=== PATIENT | male | born 1985 | race Caucasian/White ===

== ENCOUNTER 2017-12-19 15:55 | Observation (INO) ==
[2017-12-19 16:27] LABS: Basophils % 0.3 %; Eosinophils # 0.2 K/mcL (0.0-0.6); Eosinophils % 2.3 %; Hematocrit 48.9 % (37.5-50.1); Hemoglobin 16.7 g/dL (12.9-16.9); Immature Granulocytes % 0.7 % (0-4); Lymphocytes % 26.2 %; Mean Corpuscular HGB Conc 34.2 g/dL (31.6-35.5); Mean Corpuscular Volume 96.6 fL (83.0-100.0); Mean Platelet Volume 8.4 fL (9.4-12.4); Monocytes # 0.5 K/mcL (0.0-1.3); Monocytes % 7.2 %; Neutrophils # 4.7 K/mcL (1.6-8.9); Platelet Count 164 K/mcL (140-400); Red Blood Count 5.06 M/mcL (4.19-5.50); Red Cell Distribution Width 12.2 % (11.5-14.5); Segmented Neutrophils % 63.3 %
[2017-12-19 16:41] LABS: BUN/Creatinine Ratio 16 (6-26); Blood Urea Nitrogen 16 mg/dL (6-20); Calcium 9.6 mg/dL (8.6-10.3); Carbon Dioxide 22 mEq/L (23-29); Chloride 107 mEq/L (98-107); Glucose 121 mg/dL (70-105); Osmolality,Calculated 286 (280-300); Sodium 137 mEq/L (136-145); eGFR For African Americans > 60 (> 60); eGFR For Non-African Americans > 60 (> 60)
--- NOTE | 2017-12-19 19:33 | Emergency Department Note ---
Disposition Clinical Impression: Chest pain, History of hypertension, Smoker, Hematemesis, Abnormal EKG, Obesity , Hyperglycemia Disposition: Admitted As Inpatient Referrals: Agustina Lara DO [Primary Care Provider] - Forms: ED Satisfaction Letter General Adult HPI - General Chief complaint: ED Chest Pain Stated complaint: CP Source: patient Limitations: no limitations - History of Present Illness HPI Narrative: 32-year-old male reports emergency department complaining of chest pain which is been present and intermittent for about a week. He stated earlier in last week he developed chest pain which was dull and consistent in the left side of his chest. It did not radiate to his arms or jaw. Nothing seems to exacerbate the pain or make it better. The patient reports that on Saturday evening he threw up after eating food and threw up a small amount of blood. He went to see his primary care physician who thought perhaps he had an ulcer and placed him on an antiulcer medication. The patient has had no recurrences of vomiting bloody material and no recurrent vomiting. There is been no black or bloody material in the stool. The patient denies abdominal pain. He is currently not anticoagulated. He went to his primary care physician regarding the vomiting, he states an EKG was done and no acute findings were appreciated. The patient also describes having some other outpatient testing and he was not notified as to the results. The patient was at work today and became concerned regarding sharp intermittent left-sided chest pain not associated with movement breathing or activity particularly. He describes doing a lot of heavy lifting at work. Is no history of abdominal pain vomiting diarrhea or trauma. No rash on the chest no fever no upper respiratory symptoms. There is no history of leg swelling or pain. No previous history of CAD DVT PE or cancer. No primary lung disease/asthma COPD. The patient has no personal history of aortic aneurysm. He states no one in his family had early coronary artery disease. The patient is a smoker and hypertensive but has no history of diabetes. He has never had to have a heart catheterization or cardiac stents. The patient denies any other complaints or concerns. No history of acute anxiety or syncope. Patient does not usually develop exertional chest pain. Pain Scale: 1 - Related Data Home Medications Medication Instructions Recorded Confirmed Lisinopril [Zestril] 20 mg PO BID 12/19/17 12/19/17 Omeprazole [PriLOSEC] 20 mg PO DAILY 12/19/17 12/19/17 Allergies Allergy/AdvReac Type Severity Reaction Status Date / Time Amoxicillin Allergy Rash Verified 09/20/15 16:38 All systems ED: reviewed and negative except as stated. Past Medical History - Past Medical History Medical history: Reports: hypertension Surgical history: Reports: no surgical history Psychiatric history: Reports: no psych history - Social History Smoking Status: Current every day smoker Smokeless Tobacco Status: No Alcohol use: Reports: none Drug use: Reports: none Physical Exam - General Limitations: no limitations General appearance: alert, in no apparent distress - Head Head exam: atraumatic, normocephalic, normal inspection - Eye Eye exam: Present: normal appearance, PERRL, EOMI - ENT ENT exam: normal exam, normal oropharynx, mucous membranes moist - Neck Neck exam: Present: normal inspection, full ROM, trachea midline - Chest Chest inspection: Present: normal inspection, symmetric chest wall rise. Absent : tenderness - Respiratory Respiratory exam: Present: normal lung sounds bilaterally. Absent: respiratory distress, wheezes, accessory muscle use, prolonged expiratory phase - Cardiovascular Cardiovascular exam: Present: regular rate, normal rhythm, normal heart sounds - Abdominal Exam Abdominal exam: Present: soft, Non-Tender, normal bowel sounds. Absent: tenderness, distention, guarding, rebound, rigidity - Extremities Exam Extremities exam: Present: normal inspection, full ROM, normal capillary refill. Absent: tenderness, pedal edema, joint swelling, calf tenderness - Expanded Lower Extremity Exam Neurovascular/Tendon exam: Present: normal capillary refill. Absent: pulse deficit, motor deficit, sensory deficit, tendon deficit, extremity cold to touch , pallor - Back Exam Back exam: Present: full ROM. Absent: tenderness, CVA tenderness (R), CVA tenderness (L), vertebral tenderness - Neurological Exam Neurological exam: Present: alert, oriented X3, CN II-XII intact. Absent: motor sensory deficit - Psychiatric Psychiatric exam: Present: normal affect, normal mood - Skin Skin exam: Present: warm, dry, intact, normal color Course Vital Signs Temperature 98.1 F 12/19/17 15:56 Pulse Rate 106 12/19/17 15:56 Respiratory Rate 18 12/19/17 15:56 Blood Pressure 170/94 12/19/17 15:56 O2 Sat by Pulse Oximetry 95 12/19/17 15:56 Temperature 98.1 F 12/19/17 15:56 Pulse Rate 80 12/19/17 22:04 Respiratory Rate 18 12/19/17 15:56 Blood Pressure 155/116 12/19/17 22:04 O2 Sat by Pulse Oximetry 98 12/19/17 22:04 Oxygen Delivery Oxygen Delivery Room Air Medical Decision Making - MDM Narrative Medical decision making narrative: The patient appears to be stable, his EKG is abnormal however some Q waves are noted as well as what appears to be potential LVH. A slight intraventricular conduction delay is also noted with what appears to be a slight ST depression in lead 2. The patient's cardiac enzymes and laboratory studies are negative. Chest x-ray negative. The patient has not had recurrent bloody emesis. He has had no blackened stool and his hemoglobin is stable. On my calculation, the patient's heart score is a 4. Based on the patient's chest pain, abnormal EKG, history of hypertension, nicotine dependence, and elevated heart score, I thought it would be appropriate to admit the patient to hospital. The patient is never had a stress test or cardiac catheterization. I reviewed the case with the patient and his father and they are agreeable. I discussed the case with the hospitalist on-call who has accepted the patient to their care. The patient requested his usual dose of lisinopril 20 mg which was ordered. A dose of Pepcid was also ordered. Aspirin was ordered as well. - Lab Data Lab results reviewed: Yes I reviewed the patient's lab results. Result diagrams: 12/19/17 16:02 12/19/17 16:02 Lab Results 12/19/17 12/19/17 12/19/17 Range/Units 16:02 16:02 16:02 WBC 7.5 (4.3-11.1) K/mcL RBC 5.06 (4.19-5.50) M/mcL Hgb 16.7 (12.9-16.9) g/dL Hct 48.9 (37.5-50.1) % MCV 96.6 (83.0-100.0) fL MCH 33.0 (28.0-33.3) pg MCHC 34.2 (31.6-35.5) g/dL RDW 12.2 (11.5-14.5) % Plt Count 164 (140-400) K/mcL MPV 8.4 L (9.4-12.4) fL Immature Gran % 0.7 (0-4) % Seg Neutrophils % 63.3 % Lymphocytes % 26.2 % Monocytes % 7.2 % Eosinophils % 2.3 % Basophils % 0.3 % Neutrophils # 4.7 (1.6-8.9) K/mcL Lymphocytes # 2.0 (0.6-4.6) K/mcL Monocytes # 0.5 (0.0-1.3) K/mcL Eosinophils # 0.2 (0.0-0.6) K/mcL Basophils # 0.0 (0.0-0.2) K/mcL Sodium 137 (136-145) mEq/L Potassium 4.0 (3.5-5.1) mEq/L Chloride 107 (98-107) mEq/L Carbon Dioxide 22 L (23-29) mEq/L BUN 16 (6-20) mg/dL Creatinine 1.01 (0.70-1.30) mg/dL Est GFR ( Amer) > 60 (> 60) Est GFR (Non-Af Amer) > 60 (> 60) BUN/Creatinine Ratio 16 (6-26) Glucose 121 H (70-105) mg/dL Calculated Osmolality 286 (280-300) Calcium 9.6 (8.6-10.3) mg/dL Total Bilirubin 0.6 (0.3-1.0) mg/dL Direct Bilirubin 0.2 (0.0-0.2) mg/dL Indirect Bilirubin 0.4 (0.0-1.2) mg/dL AST 22 (13-39) Units/L ALT 25 (7-52) Units/L Alkaline Phosphatase 74 (34-104) Units/L Troponin I < 0.03 (< 0.04) ng/mL C-Reactive Protein < 5 (Less than 10) mg/L Serum Total Protein 7.4 (6.4-8.9) g/dL Albumin 4.6 (3.5-5.7) g/dL Globulin 2.8 (2.4-3.5) g/dL Albumin/Globulin Ratio 1.6 (1.1-2.2) Lipase 22 (11-82) Units/L - Radiology Data Radiology results reviewed: Yes I reviewed the patient's radiology results.
[2017-12-19 20:13] LABS: Alanine Aminotransferase 25 Units/L (7-52); Albumin 4.6 g/dL (3.5-5.7); Albumin/Globulin Ratio 1.6 (1.1-2.2); Alkaline Phosphatase 74 Units/L (34-104); Aspartate Amino Transferase 22 Units/L (13-39); Bilirubin,Direct 0.2 mg/dL (0.0-0.2); Bilirubin,Indirect 0.4 mg/dL (0.0-1.2); Bilirubin,Total 0.6 mg/dL (0.3-1.0); C-Reactive Protein < 5 mg/L (Less than 10); Globulin 2.8 g/dL (2.4-3.5); Lipase 22 Units/L (11-82); Total Protein 7.4 g/dL (6.4-8.9)
[2017-12-19] MEDS ORDERED: Aspirin 325 MG TABLET PO ONE (20:35)
[2017-12-19] MEDS ORDERED: Famotidine 20 MG/2 ML VIAL IVP ONE (20:40)
[2017-12-19] MEDS ORDERED: Lisinopril 20 MG TABLET PO ONE (20:41)
[2017-12-20] MEDS ORDERED: Naloxone 0.4 MG/ML INJ IVP PRN (05:00)
--- NOTE | 2017-12-20 05:04 | Internal Med History&Physical ---
Date of Encounter: 12/20/17 Time of Encounter: 05:04 Assessment and Plan (1) Chest pain Current visit: Yes Status: Acute 22/male History of hypertension. Admitted with history of shortness of breath. Had a remote history of hematemesis. Initial troponin negative. Assessment: Chest pain to rule out ACS Plan: Admit as observation. Resume home medication. Cycle troponin. Cardiology consult. All of the recommendations from cardiology regarding chest pain/blood pressure management Qualifiers: Chest pain type: unspecified Qualified Code(s): R07.9 - Chest pain, unspecified (2) History of hypertension Current visit: Yes Status: Acute Presently patient's blood pressure is very well controlled and we will continue same medication (3) Smoker Current visit: Yes Status: Acute I spent in counseling this patient more than 10 minutes but it seems to be he is not willing to quit smoking (4) Obesity Current visit: Yes Status: Acute Qualifiers: Obesity type: unspecified obesity type Obesity classification: adult class 2 (BMI 35 - 39.9) Serious obesity comorbidity presence: unspecified whether serious comorbidity present Body mass index: BMI 39.0-39.9 Qualified Code(s) : E66.9 - Obesity, unspecified; Z68.39 - Body mass index (BMI) 39.0-39.9, adult ; Z68.39 - Body mass index (BMI) 39.0-39.9, adult (5) Hyperglycemia Current visit: Yes Status: Acute . Get hemoglobin A1c. Internal Medicine - H&P: HPI Chief complaint: chest pain. Admitted From: Emergency Dept Plans for Post Hospital Care: Home History of present illness: PCP: Dr Lara Brief PMh: HTN, GERD, Ex Substance abuse, Smker. HPI: Patient is known to have a ongoing chest pain for past 1 week. Patient claims that this is a retrosternal chest pain which is occasionally most to his left precordial area. The pain is nonradiating, localized, sharp in nature worsened with activity and relieved by rest. Patient denies nausea, vomiting, abdominal pain, dizziness and diarrhea. In view of the persistent chest pain patient decided to come to this hospital for further evaluation. Workup in the emergency room: Patient was evaluated in the emergency room. Labs were drawn. Chest x-ray was negative for any acute process. CBC/CMP was not significant in terms of clinical presentation. Reason for admission: Chest pain to rule out a WI. Family history: noncontributory Past Med Surg Social Fam HX - Past Medical History Medical history: hypertension Psychiatric history: no psych history - Past Surgical History Surgical History: no surgical history - Social History Smoking Status: Current every day smoker Smokeless Tobacco Status: No Alcohol use: none Drug use: none - Family History Mother Hx Family Cardiac Disorders: Yes (HTN) Hx Family Neurologic Disorders: Yes (vertigo) Father Hx Family Genitourinary Disorders: Yes (kidney disease) Internal Medicine - H&P: Meds Lisinopril [Zestril] 20 mg PO BID 12/19/17 [History] Omeprazole [PriLOSEC] 20 mg PO DAILY 12/19/17 [History] 3 Allergy/AdvReac Type Severity Reaction Status Date / Time Amoxicillin Allergy Rash Verified 09/20/15 16:38 All Systems PM: A 10-system review of systems was performed and is negative for pertinent findings except as documented above in the HPI. - Constitutional Constitutional: no chills, no fever(s), no night sweats - EENT Eyes: no change in vision, no discharge, no pain, no photophobia Ears: no ear discharge, no ear pain, no tinnitus Nose, mouth and throat: no dysphagia, no nasal discharge, no neck pain, no sore throat - Cardiovascular Cardiovascular ROS IM: chest pain, diaphoresis, dyspnea, no lightheadedness, no palpitations, no syncope - Respiratory Respiratory: no cough, no dyspnea, no wheezing, no excessive phlegm production - Gastrointestinal Gastrointestinal: no abdominal pain, no diarrhea, no hematemesis, no hematochezia, no melena, no nausea, no vomiting - Musculoskeletal Musculoskeletal ROS IM: no numbness, no tingling - Integumentary Integumentary IM: no rash, no unusual bruising - Neurological Neurological ROS: no confusion, no convulsions, no focal weakness, no numbness, no tingling, no tremor(s) - Hematologic/Lymphatic Hematologic/Lymphatic: no easy bruising - Constitutional Vitals: Temp Pulse Resp BP Pulse Ox 97.8 F 76 17 134/94 97 12/20/17 03:30 12/20/17 03:30 12/20/17 03:30 12/20/17 03:30 12/20/17 03:30 General appearance: Present: A&O X 3, morbidly obese, pleasant, no acute distress - Head Head exam: Present: atraumatic, normocephalic - Eye Eye exam: Present: PERRL, conjuntiva pink, sclera anicteric Pupils: Present: PERRL - Neck Neck exam general surgery: Present: supple, trachea midline. Absent: lymphadenopathy - Respiratory Respiratory exam: Present: CTAB. Absent: accessory muscle use, rales, rhonchi, wheezes - Cardiovascular Cardiovascular exam: Present: RRR, +S1, +S2. Absent: diastolic murmur, gallop, rubs, systolic murmur - GI/Abdominal GI/Abdominal exam: Present: normal bowel sounds, soft, no peritoneal signs. Absent: distended, tenderness - Extremities Exam Extremities exam: Present: warm, radial pulses palpable and symmetrical. Absent : calf tenderness, cyanotic, pedal edema - Neurological Exam Neurological exam: Present: CN II-XII intact, oriented X3, no focal deficits. Absent: pronater drift, facial droop, speech deficit - Skin Skin exam: Present: dry, intact Internal Med - H&P Results - Labs CBC & Chem 7: 12/19/17 16:02 12/19/17 16:02
[2017-12-20 06:20] LABS: Basophils % 0.3 %; Eosinophils # 0.2 K/mcL (0.0-0.6); Eosinophils % 2.8 %; Hematocrit 45.3 % (37.5-50.1); Hemoglobin 15.3 g/dL (12.9-16.9); Immature Granulocytes % 0.5 % (0-4); Lymphocytes # 1.6 K/mcL (0.6-4.6); Lymphocytes % 24.9 %; Mean Corpuscular HGB Conc 33.8 g/dL (31.6-35.5); Mean Corpuscular Hemoglobin 32.8 pg (28.0-33.3); Mean Platelet Volume 8.8 fL (9.4-12.4); Monocytes # 0.6 K/mcL (0.0-1.3); Monocytes % 8.6 %; Platelet Count 143 K/mcL (140-400); Red Blood Count 4.67 M/mcL (4.19-5.50); Red Cell Distribution Width 12.4 % (11.5-14.5); Segmented Neutrophils % 62.9 %
[2017-12-20 06:28] LABS: INR 1.1; Prothrombin Time 11.3 Seconds (9.4-12.1)
[2017-12-20 06:31] LABS: Activated Partial Thrombo Time 30.3 Seconds (26.0-36.0)
[2017-12-20 06:41] LABS: Alanine Aminotransferase 22 Units/L (7-52); Albumin 4.1 g/dL (3.5-5.7); Albumin/Globulin Ratio 1.6 (1.1-2.2); Alkaline Phosphatase 62 Units/L (34-104); Aspartate Amino Transferase 18 Units/L (13-39); BUN/Creatinine Ratio 19 (6-26); Bilirubin,Total 0.7 mg/dL (0.3-1.0); Blood Urea Nitrogen 17 mg/dL (6-20); Calcium 8.9 mg/dL (8.6-10.3); Carbon Dioxide 22 mEq/L (23-29); Chloride 108 mEq/L (98-107); Chol/HDL Ratio 4.3 (0-4.9); Cholesterol 164 mg/dL (< 200); Globulin 2.6 g/dL (2.4-3.5); Glucose 104 mg/dL (70-105); HDL Cholesterol 38 mg/dL (40-59); LDL Cholesterol,Calculated 91 mg/dL (0-99); Magnesium 1.8 mg/dL (1.6-2.6); Osmolality,Calculated 284 (280-300); Phosphorous 3.1 mg/dL (2.7-4.5); Potassium 4.3 mEq/L (3.5-5.1); Sodium 136 mEq/L (136-145); Total Protein 6.7 g/dL (6.4-8.9); Triglycerides 177 mg/dL (< 150); eGFR For African Americans > 60 (> 60); eGFR For Non-African Americans > 60 (> 60)
[2017-12-20] MEDS: Aspirin Enteric Coated 81 MG Tablet PO SCH (08:57)
[2017-12-20] MEDS: Lisinopril 20 MG TABLET PO SCH ×2 (08:57→20:10)
[2017-12-20 12:08] LABS: Hemoglobin A1C 4.9 %
--- NOTE | 2017-12-20 18:23 | Internal Med Progress Note ---
Date of Encounter: 12/20/17 Time of Encounter: 16:00 - Assessment and plan (1) Chest pain Current Visit: Yes Status: Acute Assessment and plan: One-week history of chest pain. He reports it is substernal, upper left chest. He reports approximately 3 days ago it did radiate into his neck. He describes it as sharp and intermittent he denies any nausea, vomiting, diaphoresis, dizziness or shortness of breath. He has history of hypertension, obesity, smoking, hyperglycemia, increase his risk. He should and father deny any knowledge of early MIs or sudden cardiac . Chest x-ray was negative. Troponins negative. Echocardiogram LVEF of 6065%, mild concentric LV hypertrophy, mild LV DD, no significant valvular dysfunction. Patient will stay for stress test. He is aware that due to his BMI he will need a 2 day stress test. Since we do not have stress tests on Saturday, he will stay until Saturday to complete. Still reports intermittent left chest pain and rated 3/10. Continue telemetry Stress test pending Nothing by mouth after midnight Nitroglycerin as needed A1c pending Patient with mildly elevated triglycerides, we will encourage lifestyle modifications. Qualifiers: Chest pain type: unspecified Qualified Code(s): R07.9 - Chest pain, unspecified (2) History of hypertension Current Visit: Yes Status: Acute Assessment and plan: Patient has not been medicated. Blood pressure readings remain hypertensive. Continue lisinopril 20 mg twice daily. We will consider adding additional medication (3) Hyperglycemia Current Visit: Yes Status: Acute Assessment and plan: 2 hyperglycemic readings in the morning. A1c in the morning. (4) Obesity Current Visit: Yes Status: Acute Assessment and plan: Chronic. Encourage lifestyle modifications. Qualifiers: Obesity type: unspecified obesity type Obesity classification: adult class 2 (BMI 35 - 39.9) Serious obesity comorbidity presence: unspecified whether serious comorbidity present Body mass index: BMI 39.0-39.9 Qualified Code(s) : E66.9 - Obesity, unspecified; Z68.39 - Body mass index (BMI) 39.0-39.9, adult ; Z68.39 - Body mass index (BMI) 39.0-39.9, adult (5) Smoker Current Visit: Yes Status: Acute Assessment and plan: Patient reports he might be ready to quit smoking. He denies need for nicotine replacement. (6) DVT prophylaxis Current Visit: Yes Status: Acute Assessment and plan: Patient is young and ambulatory, encourage ambulation. - Subjective Interval history: Patient was seen and assessed approximately 4 PM. He is sitting up in bed, alert, oriented, answers questions appropriately. Father at bedside. She reports sharp, shooting left chest pain with radiation to his left neck 3 days ago. Onset of proximal pain 1 week. He has no other symptoms no nausea, vomiting, diarrhea, shortness of breath or diaphoresis. Patient and I discussed stress test at length. He is aware that if the stress test is ordered for the morning, he will not get the second half of his stress test until Saturday due to his BMI. He has smoking, hypertension, and obesity as risk factors, both patient and father report no early MIs or early sudden cardiac . - Constitutional Vitals: Temp Pulse Resp BP Pulse Ox 98.4 F 78 18 153/93 97 12/20/17 15:33 12/20/17 15:33 12/20/17 15:33 12/20/17 15:33 12/20/17 15:33 General appearance: Present: A&O X 3, pleasant, no acute distress, obese, answers questions appropriately - Head Head exam: Present: atraumatic, normal inspection, normocephalic - Eye Eye exam: Present: normal appearance, conjuntiva pink, sclera anicteric - Neck Neck exam general surgery: Present: supple, trachea midline. Absent: lymphadenopathy, tenderness - Respiratory Respiratory exam: Present: CTAB. Absent: accessory muscle use, chest wall tenderness, decreased breath sounds, rales, rhonchi, wheezes - Cardiovascular Cardiovascular exam: Present: RRR, +S1, +S2. Absent: diastolic murmur, gallop, rubs, systolic murmur - GI/Abdominal GI/Abdominal exam: Present: distended, normal bowel sounds, soft. Absent: hepatomegaly, tenderness - Extremities Exam Extremities exam: Present: normal inspection, warm, radial pulses palpable and symmetrical. Absent: calf tenderness, cyanotic, pedal edema, tenderness - Neurological Exam Neurological exam: Present: alert, oriented X3, no focal deficits. Absent: facial droop, speech deficit - Skin Skin exam: Present: dry, intact, normal color, warm. Absent: rash Internal Medicine: Result - Labs CBC & Chem 7: 12/20/17 05:28 12/20/17 05:28 Labs: Short CBC 12/20/17 Range/Units 05:28 WBC 6.4 (4.3-11.1) K/mcL Hgb 15.3 (12.9-16.9) g/dL Hct 45.3 (37.5-50.1) % Plt Count 143 (140-400) K/mcL Neutrophils # 4.0 (1.6-8.9) K/mcL BMP 12/20/17 05:28 Sodium 136 Potassium 4.3 Chloride 108 H Carbon Dioxide 22 L BUN 17 Creatinine 0.88 Glucose 104 Calcium 8.9 Cardiac Enzymes 12/20/17 12/20/17 12/20/17 Range/Units 05:28 12:12 17:25 Troponin I < 0.03 < 0.03 < 0.03 (< 0.04) ng/mL Liver Function 12/20/17 Range/Units 05:28 Total Bilirubin 0.7 (0.3-1.0) mg/dL AST 18 (13-39) Units/L ALT 22 (7-52) Units/L Alkaline Phosphatase 62 (34-104) Units/L Albumin 4.1 (3.5-5.7) g/dL - ABG Interpretation ABG results: PT/INR, D-dimer PT 11.3 Seconds (9.4-12.1) 12/20/17 05:28 - Impressions Impressions Echocardiogram 12/20/17 05:02 Impressions: LVEF 60-65%. Normal LV chamber size and function. Mild concentric left ventricular hypertrophy. Mild left ventricular diastolic dysfunction. Right ventricular size was not well visualized. Function appears normal. Unable to estimate RVSP due to lack of TR jet. No significant valvular dysfunction. Left Ventricular Wall Motion: Rest Echo Findings All wall segments showed normal motion. Findings: Study Quality * Technically sub-optimal due to body habitus. ECG Findings * Normal sinus rhythm. Left Ventricle * LVEF 60-65%. * Normal LV chamber size and function. * Mild concentric left ventricular hypertrophy. * Mild left ventricular diastolic dysfunction. Right Ventricle * Right ventricular size was not well visualized. Function appears normal. Left Atrium * Mild to moderately dilated left atrium. Right Atrium * Mild to moderately dilated right atrium. Interatrial Septum * Interatrial septum not well evaluated. Aortic Valve * Aortic valve not well visualized. * No aortic regurgitation. * No aortic stenosis. Mitral Valve * Normal mitral valve structure and function. * No mitral regurgitation. * No mitral stenosis. Tricuspid Valve * Normal tricuspid valve structure and function. * No tricuspid regurgitation. * Unable to estimate RVSP due to lack of TR jet. Pulmonic Valve * Pulmonic valve not well visualized. Aorta * Normally sized aortic root. Pericardium * The pericardium appears normal. IVC * Normal IVC dimensions and inspiratory collapse. Pulmonary Artery * Pulmonary artery not well visualized. Consult Discharge Plan - Plan Referrals: Agustina Lara DO [Primary Care Provider] -
[2017-12-20] MEDS: Nicotine 14 MG PATCH.TD24 TD SCH (20:10)
--- NOTE | 2017-12-20 20:19 | Electrocardiograph Report ---
[place] [id number] Test Date: 2017-12-19 Pat Name: Everardo Sanderson Department: 104 Room: 3B39 Gender: M Welding Machine Operator/Tender: : 1985 Requested By: Jose Bhatti Order Number: [id number] Reading MD: Adin Kent DO Measurements Intervals [place] Rate: 104 P: 72 IN: 179 QRS: 60 QRSD: 103 T: 38 QT: 312 QTc: 373 Interpretive Statements SINUS TACHYCARDIA Electronically Signed On 12-20-2017 20:17:57 EST by Adin Kent DO
[2017-12-21 05:06] LABS: Basophils % 0.3 %; Eosinophils # 0.2 K/mcL (0.0-0.6); Eosinophils % 2.6 %; Hematocrit 46.3 % (37.5-50.1); Hemoglobin 15.7 g/dL (12.9-16.9); Immature Granulocytes % 0.6 % (0-4); Lymphocytes # 1.4 K/mcL (0.6-4.6); Lymphocytes % 21.9 %; Mean Corpuscular HGB Conc 33.9 g/dL (31.6-35.5); Mean Corpuscular Hemoglobin 32.8 pg (28.0-33.3); Mean Corpuscular Volume 96.7 fL (83.0-100.0); Mean Platelet Volume 8.8 fL (9.4-12.4); Monocytes # 0.6 K/mcL (0.0-1.3); Monocytes % 8.6 %; Neutrophils # 4.3 K/mcL (1.6-8.9); Platelet Count 136 K/mcL (140-400); Red Blood Count 4.79 M/mcL (4.19-5.50); Red Cell Distribution Width 12.3 % (11.5-14.5)
[2017-12-21 05:25] LABS: BUN/Creatinine Ratio 20 (6-26); Blood Urea Nitrogen 17 mg/dL (6-20); Calcium 8.6 mg/dL (8.6-10.3); Carbon Dioxide 23 mEq/L (23-29); Chloride 109 mEq/L (98-107); Glucose 102 mg/dL (70-105); Osmolality,Calculated 286 (280-300); Potassium 4.1 mEq/L (3.5-5.1); Sodium 137 mEq/L (136-145); eGFR For African Americans > 60 (> 60); eGFR For Non-African Americans > 60 (> 60)
[2017-12-21] MEDS ORDERED: Regadenoson 0.4 MG/5 ML SYRINGE IVP ONE (06:30)
[2017-12-21] MEDS: Nicotine 14 MG PATCH.TD24 TD SCH (13:36)
[2017-12-21] MEDS: Aspirin Enteric Coated 81 MG Tablet PO SCH (13:36)
[2017-12-21] MEDS: Lisinopril 20 MG TABLET PO SCH ×2 (13:36→19:54)
--- NOTE | 2017-12-21 17:46 | Internal Med Progress Note ---
Date of Encounter: 12/21/17 Time of Encounter: 10:30 - Assessment and plan (1) Chest pain Current Visit: Yes Status: Acute Assessment and plan: Still reports intermittent left chest pain and rated 3/10. Denies shortness of breath, cough, fever or chills. Continue aspirin, nitroglycerin. A1c is 4.9 Continue telemetry Stress test pending Nothing by mouth after midnight Nitroglycerin as needed Patient with mildly elevated triglycerides, we will encourage lifestyle modifications. Qualifiers: Chest pain type: unspecified Qualified Code(s): R07.9 - Chest pain, unspecified (2) History of hypertension Current Visit: Yes Status: Acute Assessment and plan: Patient has not been medicated. Blood pressure readings remain hypertensive. Continue lisinopril 20 mg twice daily. Will add hydrochlorothiazide 12.5 mg by mouth daily. (3) Obesity Current Visit: Yes Status: Acute Assessment and plan: Chronic. Encourage lifestyle modifications. Qualifiers: Obesity type: unspecified obesity type Obesity classification: adult class 2 (BMI 35 - 39.9) Serious obesity comorbidity presence: unspecified whether serious comorbidity present Body mass index: BMI 39.0-39.9 Qualified Code(s) : E66.9 - Obesity, unspecified; Z68.39 - Body mass index (BMI) 39.0-39.9, adult ; Z68.39 - Body mass index (BMI) 39.0-39.9, adult (4) Smoker Current Visit: Yes Status: Acute Assessment and plan: Patient reports he might be ready to quit smoking. He denies need for nicotine replacement again today. (5) DVT prophylaxis Current Visit: Yes Status: Acute Assessment and plan: Patient is young and ambulatory, encourage ambulation. - Time Spent With Patient less than 15 minutes - Subjective Interval history: Patient was seen and assessed approximately 1030 a.m. He is sitting up in bed, alert, oriented, answers questions appropriately. Patient reports he is still having intermittent left chest pain without radiation. He denies any nausea, vomiting, diarrhea. Of the time of exam, patient was unable to have any nitroglycerin or by mouth medications due to pending stress test. Patient denies chest pain, nausea, vomiting, diaphoresis. He denies any diarrhea abdominal pain, cramping. He denies dizziness, headaches or blurred vision, no neck pain. Denies recent cough, fever, chills. The pain is not reproducible with palpation. Patient is aware that he will be here for 2 more days to finish a stress test. - Constitutional Vitals: Temp Pulse Resp BP Pulse Ox 98.3 F 93 16 148/97 94 12/21/17 15:49 12/21/17 15:49 12/21/17 15:49 12/21/17 15:49 12/21/17 15:49 General appearance: Present: cooperative, A&O X 3, pleasant, no acute distress, obese, answers questions appropriately - Head Head exam: Present: atraumatic, normal inspection, normocephalic - Eye Eye exam: Present: normal appearance, conjuntiva pink, sclera anicteric - Neck Neck exam general surgery: Present: supple, trachea midline. Absent: lymphadenopathy, tenderness - Respiratory Respiratory exam: Present: CTAB. Absent: accessory muscle use, rales, respiratory distress, rhonchi, wheezes - Cardiovascular Cardiovascular exam: Present: RRR, +S1, +S2. Absent: diastolic murmur, gallop, rubs, systolic murmur - GI/Abdominal GI/Abdominal exam: Present: normal bowel sounds, soft, no peritoneal signs. Absent: distended, hepatomegaly, tenderness - Extremities Exam Extremities exam: Present: normal capillary refill, normal inspection, warm, radial pulses palpable and symmetrical. Absent: calf tenderness, cyanotic, pedal edema, tenderness - Neurological Exam Neurological exam: Present: alert, oriented X3, no focal deficits. Absent: facial droop, speech deficit - Skin Skin exam: Present: dry, intact, normal color, warm. Absent: rash Internal Medicine: Result - Labs CBC & Chem 7: 12/21/17 04:03 12/21/17 04:03 Labs: Short CBC 12/21/17 Range/Units 04:03 WBC 6.5 (4.3-11.1) K/mcL Hgb 15.7 (12.9-16.9) g/dL Hct 46.3 (37.5-50.1) % Plt Count 136 L (140-400) K/mcL Neutrophils # 4.3 (1.6-8.9) K/mcL BMP 12/21/17 04:03 Sodium 137 Potassium 4.1 Chloride 109 H Carbon Dioxide 23 BUN 17 Creatinine 0.83 Glucose 102 Calcium 8.6 Cardiac Enzymes 12/20/17 Range/Units 17:25 Troponin I < 0.03 (< 0.04) ng/mL - ABG Interpretation ABG results: PT/INR, D-dimer PT 11.3 Seconds (9.4-12.1) 12/20/17 05:28 Consult Discharge Plan - Plan Referrals: Agustina Lara DO [Primary Care Provider] -
[2017-12-21] MEDS ORDERED: Nitroglycerin 0.4 MG TAB.SUBL SL PRN (17:48)
[2017-12-22] MEDS: Lisinopril 20 MG TABLET PO SCH ×2 (08:13→19:33)
[2017-12-22] MEDS: Nicotine 14 MG PATCH.TD24 TD SCH (08:13)
[2017-12-22] MEDS: Aspirin Enteric Coated 81 MG Tablet PO SCH (08:13)
--- NOTE | 2017-12-22 14:02 | Internal Med Progress Note ---
Date of Encounter: 12/22/17 Time of Encounter: 10:50 - Assessment and plan (1) Chest pain Current Visit: Yes Status: Acute Assessment and plan: Still reports intermittent left chest pain and rated. Denies shortness of breath, cough, fever or chills. ASA, NTG ordered, pt will not take due to headache. A1c is 4.9 Continue telemetry Stress test pending Nothing by mouth after midnight Nitroglycerin as needed Patient with mildly elevated triglycerides, we will encourage lifestyle modifications. Qualifiers: Chest pain type: unspecified Qualified Code(s): R07.9 - Chest pain, unspecified (2) History of hypertension Current Visit: Yes Status: Acute Assessment and plan: Patient has not been medicated. Blood pressure readings seem slightly better after addition of HCTZ 12.5mg po daily Continue lisinopril 20 mg twice daily and HCTZ. (3) Obesity Current Visit: Yes Status: Acute Assessment and plan: Chronic. Encourage lifestyle modifications., including diet and exercise. Qualifiers: Obesity type: unspecified obesity type Obesity classification: adult class 2 (BMI 35 - 39.9) Serious obesity comorbidity presence: unspecified whether serious comorbidity present Body mass index: BMI 39.0-39.9 Qualified Code(s) : E66.9 - Obesity, unspecified; Z68.39 - Body mass index (BMI) 39.0-39.9, adult ; Z68.39 - Body mass index (BMI) 39.0-39.9, adult (4) Smoker Current Visit: Yes Status: Acute Assessment and plan: Patient reports he might be ready to quit smoking. He denies need for nicotine replacement again today. (5) DVT prophylaxis Current Visit: Yes Status: Acute Assessment and plan: Patient is young and ambulatory, encourage ambulation. - Time Spent With Patient less than 15 minutes - Subjective Interval history: Patient was seen and assessed approximately 1050 a.m. He is sitting up in bed, alert, oriented, answers questions appropriately. Patient reports he is still having intermittent left chest pain without radiation. STates that he does not want to take ntg due to headache. He denies any nausea, vomiting, diarrhea. Patient denies nausea, vomiting, diaphoresis. He denies any diarrhea abdominal pain, cramping. He denies dizziness, headaches or blurred vision, no neck pain. Denies recent cough, fever, chills. The pain is not reproducible with palpation. Stress test tomorrow. - Constitutional Vitals: Temp Pulse Resp BP Pulse Ox 97.9 F 85 18 147/83 98 12/22/17 11:51 12/22/17 11:51 12/22/17 11:51 12/22/17 11:51 12/22/17 11:51 General appearance: Present: cooperative, A&O X 3, pleasant, no acute distress, obese, answers questions appropriately - Head Head exam: Present: atraumatic, normal inspection, normocephalic - Eye Eye exam: Present: normal appearance, conjuntiva pink, sclera anicteric - Neck Neck exam general surgery: Present: normal inspection, supple, trachea midline. Absent: lymphadenopathy, tenderness - Respiratory Respiratory exam: Present: CTAB. Absent: accessory muscle use, rales, rhonchi, wheezes - Cardiovascular Cardiovascular exam: Present: RRR, +S1, +S2. Absent: diastolic murmur, gallop, rubs, systolic murmur - GI/Abdominal GI/Abdominal exam: Present: normal bowel sounds, soft. Absent: distended, hepatomegaly, tenderness - Extremities Exam Extremities exam: Present: normal capillary refill, normal inspection, warm, radial pulses palpable and symmetrical. Absent: calf tenderness, cyanotic, pedal edema, tenderness - Neurological Exam Neurological exam: Present: alert, oriented X3, no focal deficits. Absent: facial droop, speech deficit - Skin Skin exam: Present: dry, intact, normal color, warm. Absent: rash Internal Medicine: Result - Labs CBC & Chem 7: 12/21/17 04:03 12/21/17 04:03 - ABG Interpretation ABG results: PT/INR, D-dimer PT 11.3 Seconds (9.4-12.1) 12/20/17 05:28 Consult Discharge Plan - Plan Referrals: Agustina Lara DO [Primary Care Provider] -
[2017-12-23] MEDS: Lisinopril 20 MG TABLET PO SCH ×2 (07:45→21:17)
[2017-12-23] MEDS: Aspirin Enteric Coated 81 MG Tablet PO SCH (09:26)
[2017-12-23] MEDS: Nicotine 14 MG PATCH.TD24 TD SCH (09:26)
[2017-12-23 10:25] LABS: Hemoglobin A1C 4.8 %
--- NOTE | 2017-12-23 11:47 | Discharge Summary ---
Orders not resulted at time of discharge: Pending orders 12/20/17 19:25 NM niikta perf SPECT multi [NM] Routine Date of Encounter: 12/23/17 Time of Encounter: 12:50 - Discharge Diagnosis (1) Chest pain Priority: Primary Status: Acute Comments: Patient has reported mild, intermittent left chest pain without radiation. He denies any shortness of breath, cough, fever, chills. The pain is not reproducible. Patient has had aspirin and nitroglycerin ordered and will not take the nitroglycerin due to headache. His A1c is 4.9 and well-controlled, triglycerides are mildly elevated, we discussed lifestyle modifications, we will most likely place him on fish oil supplement and recommended labs in 6 months at his primary care provider. EKG was normal sinus rhythm without ST elevation or changes, troponins were negative 3. Echocardiogram shows preserved EF with normal LV size and function, mild concentric LV hypertrophy, mild LV diastolic dysfunction and no significant valvular dysfunction. Stress test shows gaited EF of 65% of small size, mild intensity, reversible basal to mid inferolateral defect, suggestive of ischemia. Cardiology was consulted, patient was made aware of results and basic options discussed. 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 Will add hydrochlorothiazide to daily regimen. Continue telemetry Cardiology consult and close follow-up after discharge Qualifiers: Chest pain type: unspecified Qualified Code(s): R07.9 - Chest pain, unspecified (2) History of hypertension Priority: Secondary Status: Chronic Comments: Patient takes lisinopril 20 mg twice daily, I will add hydrochlorothiazide 12.5 mg daily to regimen for continued hypertension, perhaps if successful can make combination drug. Patient needs close monitoring of blood pressure after discharge. (3) Obesity Priority: Secondary Status: Chronic Comments: Encourage lifestyle modifications including diet and exercise modifications. Qualifiers: Obesity type: unspecified obesity type Obesity classification: adult class 2 (BMI 35 - 39.9) Serious obesity comorbidity presence: unspecified whether serious comorbidity present Body mass index: BMI 39.0-39.9 Qualified Code(s) : E66.9 - Obesity, unspecified; Z68.39 - Body mass index (BMI) 39.0-39.9, adult ; Z68.39 - Body mass index (BMI) 39.0-39.9, adult (4) Smoker Priority: Secondary Status: Chronic Comments: Patient I have discussed multiple times smoking cessation. He states he is doing well here. I will still give him a prescription for NicoDerm patches at discharge. (5) DVT prophylaxis Priority: Secondary Status: Acute Comments: Patient has been ambulatory. Hospital course: Mr. Sanderson is a 32 year old male with past medical history of hypertension who presented to the emergency department with left chest pain with some radiation to left neck and shoulder. Patient was agreeable to spending the weekend here seeking had a 2 day stress test on Saturday and Saturday. He had intermittent chest pain throughout his visit, declined nitroglycerin due to headache. Patient was started on aspirin 81 mg daily as well as Lipitor 20 mg daily at bedtime due to new diagnosis of hypertriglyceridemia. EKG showed preserved ejection fraction with mild LVDD and no significant valvular dysfunction. Stress test indicated EF of 65% with a small size, mild intensity, reversible basal to mid inferolateral defect suggestive of ischemia. Cardiology was consulted and will see patient. Patient had negative troponins and EKG was normal sinus rhythm without ST changes. Patient has a history of smoking and hypertension. His blood pressures been borderline throughout his visit. He takes Lipitor 20 mg twice daily, have added hydrochlorothiazide 12.5 mg daily, can increase to 25 mg daily if necessary. Discharge summary was started due to positive stress test results. Patient has not yet been seen by cardiology at this time. - Time Spent with Patient Total time spent providing and/or coordinating discharge services: - Discharge Medications Prescriptions: hydroCHLOROthiazide [Hydrochlorothiazide] 12.5 mg PO DAILY #30 tablet Nicotine Patch [Nicoderm] 14 mg TD DAILY #28 patch.td24 [place]-3/Dha/Epa/Fish Oil [Fish Oil [place]-3 EC 1,200 mg] 1 each PO DAILY #30 capsule.dr Ham Medications: Lisinopril [Zestril] 20 mg PO BID 12/19/17 [History] Omeprazole [PriLOSEC] 20 mg PO DAILY 12/19/17 [History] Nicotine Patch [Nicoderm] 14 mg TD DAILY #28 patch.td24 12/23/17 [Rx] [place]-3/Dha/Epa/Fish Oil [Fish Oil [place]-3 EC 1,200 mg] 1 each PO DAILY #30 capsule. 12/23/17 [Rx] hydroCHLOROthiazide [Hydrochlorothiazide] 12.5 mg PO DAILY #30 tablet 12/23/17 [ Rx] Allergies/Adverse Reactions: 3 Allergy/AdvReac Type Severity Reaction Status Date / Time Amoxicillin Allergy Rash Verified 09/20/15 16:38 Date of admission: 12/19/17 22:37 Primary care physician: Agustina Lara DO Discharging clinician: Sharita Hoyt Anticipated date of discharge: 12/23/17 - Constitutional Vitals: Temp Pulse Resp BP Pulse Ox 97.7 F 79 18 160/102 96 12/23/17 07:13 12/23/17 07:13 12/23/17 07:13 12/23/17 07:13 12/23/17 07:13 General appearance: Present: cooperative, A&O X 3, pleasant, no acute distress, obese, answers questions appropriately - Patient Status Disposition: Home, Self-Care Condition: Good Functional capacity at discharge: independent ambulation Overall status at discharge: patient is back to baseline - Discharge Instructions Follow Up With: Agustina Lara DO [Primary Care Provider] - Additional Instructions: These follow up with your primary care provider in the next 7-10 days for recheck. Please take your medications as directed. Please have your prescriptions filled in the next few days. Please stop smoking and weight or nicotine patches. Please increase your exercise, water, and follow a reduced calorie diet. Return to the emergency department as needed for any other problems or concerns , or if your symptoms return or worsen. - Diet and Activity Activity: increase activity as tolerated Diet: low fat, low cholesterol
[2017-12-23] MEDS: hydroCHLOROthiazide 25 MG TABLET PO SCH (12:41)
--- NOTE | 2017-12-23 17:15 | Cardiology Consult Note ---
Date of Encounter: 12/23/17 Time of Encounter: 15:30 Assessment and Plan (1) Abnormal stress test Current Visit: Yes Status: Acute Patient underwent stress testing which was an average quality study done as a 2- day due to body habitus. There is a small sized, mild intensity basal-mid inferolateral wall defect suggestive of ischemia. Patient's risk factors include hypertension and smoking. He denies premature family history of CAD. We discussed the results of the stress test and his risk factors for CAD. Given his age I suspect findings may represent a false positive test result. However, the patient has ongoing unexplained chest discomfort and risk factors for CAD and therefore we discussed consideration for proceeding with LHC. However, he also reports an episode of bloody vomitus which occurred about a week ago. He said that this was voluminous and not just blood tinged. He further reports "scope" was supposedly set up as outpatient. Presenting symptoms could be from a GI etiology. I recommend having GI evaluate the patient prior to considering proceeding with LHC. Further recommendations pending GI evaluation. Patient seems to be tolerating aspirin at this time which we will continue unless GI evaluation suggests otherwise. Discussion w patient/family: The assessment and plan as outlined above was discussed with the patient and/or family members who expressed understanding and agreement. All questions were answered. Thank you for involving us in the care of your patient. Please call with any questions. History of Present Illness Consult date: 12/23/17 Requesting physician: Sharita Hoyt Consult reason: Abnormal stress test Chief complaint: Chest pain History of present illness: Mr. Sanderson is a 32 year old male presenting with chest pain. He states pain developed approximately 2 weeks ago. Describes it as diffusely located across the chest and dull in severity and constant. Not exacerbated by exertion and not associated with food intake. He reports having bouts of sharp chest pain over the past few days which prompted his visit to the ER. Denies recent travel. Denies leg swelling. Upon presentation, troponins negative. ECG without ischemic findings. Echo with normal LVEF and RV function. Patient underwent stress testing that suggested ischemia which prompted consultation. At the bedside, the patient is resting comfortably. States he has dull chest pain rated as 1/10. This has been ongoing and constant for 2 weeks. He is hemodynamically stable. Past Med Surg Social Fam HX - Past Medical History Attestation: Yes The following information was validated with the patient. Medical history: hypertension Psychiatric history: no psych history - Past Surgical History Surgical History: no surgical history - Social History Smoking Status: Current every day smoker Smokeless Tobacco Status: No Alcohol use: none Drug use: none - Family History Mother Hx Family Cardiac Disorders: Yes (HTN) Hx Family Neurologic Disorders: Yes (vertigo) Father Hx Family Genitourinary Disorders: Yes (kidney disease) Medications and Allergies Lisinopril [Zestril] 20 mg PO BID 12/19/17 [History] Omeprazole [PriLOSEC] 20 mg PO DAILY 12/19/17 [History] Nicotine Patch [Nicoderm] 14 mg TD DAILY #28 patch.td24 12/23/17 [Rx] [place]-3/Dha/Epa/Fish Oil [Fish Oil [place]-3 EC 1,200 mg] 1 each PO DAILY #30 capsule. 12/23/17 [Rx] hydroCHLOROthiazide [Hydrochlorothiazide] 12.5 mg PO DAILY #30 tablet 12/23/17 [ Rx] 3 Allergy/AdvReac Type Severity Reaction Status Date / Time Amoxicillin Allergy Rash Verified 09/20/15 16:38 All Systems Review: The remainder of the systems were reviewed and are negative - Cardiovascular Cardiovascular: as per HPI Physical Examination Vital Signs, Last 4 Hours Temp Pulse Resp BP Pulse Ox 12/23/17 15:23 98.8 F 91 18 144/96 96 General: Conversant, No Apparent Distress HEENT: Atraumatic, Mucus Membranes Moist Neck: No JVD, Normal carotid pulses Cardiac: Reg Rate and Rhythm, Normal S1 and S2, No Murmur Lungs: Normal Breath Sounds, No Wheeze, Rales, Rhonchi Neuro: Alert and responsive, No focal deficits noted Abdomen: Soft, Non-Tender, Other (bowel sounds present) Musculoskeletal: No Chest Wall Tenderness Extremities: No Edema, Normal Pulses Results 12/21/17 04:03 12/21/17 04:03 Labs reviewed. - Imaging and Cardiology Chest Xray: report reviewed Stress Test: report reviewed Echo: report reviewed - EKG Interpretation EKG results cardiology: personally reviewed (Presenting ECG without ischemic findings) Consult Discharge Plan - Plan Additional Instructions: These follow up with your primary care provider in the next 7-10 days for recheck. Please take your medications as directed. Please have your prescriptions filled in the next few days. Please stop smoking and weight or nicotine patches. Please increase your exercise, water, and follow a reduced calorie diet. Return to the emergency department as needed for any other problems or concerns , or if your symptoms return or worsen. Referrals: Agustina Lraa DO [Primary Care Provider] - Prescriptions: hydroCHLOROthiazide [Hydrochlorothiazide] 12.5 mg PO DAILY #30 tablet Nicotine Patch [Nicoderm] 14 mg TD DAILY #28 patch.td24 [place]-3/Dha/Epa/Fish Oil [Fish Oil [place]-3 EC 1,200 mg] 1 each PO DAILY #30 capsule.
[2017-12-24] MEDS: hydroCHLOROthiazide 25 MG TABLET PO SCH (09:29)
[2017-12-24] MEDS: Lisinopril 20 MG TABLET PO SCH ×2 (09:29→21:46)
[2017-12-24] MEDS: Nicotine 14 MG PATCH.TD24 TD SCH (09:29)
--- NOTE | 2017-12-24 13:37 | Event Note ---
Date of Encounter: 12/24/17 Time of Encounter: 12:00 - Cardiology Event Note Briefly spoke with patient - continues to have dull constant chest pain without worsening. No acute overnight events. Awaiting GI evaluation and endoscopy procedure today. Further cardiac recommendations to follow procedure results.
--- NOTE | 2017-12-24 13:46 | Anesthesia Evaluation PreOp ---
Date of Encounter: 12/24/17 Time of Encounter: 13:43 - Past History Planned Operation: EGD Cardiac History: HTN, Other (abnormal stress test in setting of chest pain-- cardiology following, recommended GI evaluation prior to proceeding with [facility]) Pulmonary History: Smoker (14 years), Snore, NAHUM Dx (does not use CPAP) [employer]OCKER History: Denies Any Significant HX Other Medical History: GERD Anesthesia History: No Prior Anesthetic Complications, Past Anesthesia Alcohol Use: occasionally Drug use: none Medications and Allergies Lisinopril [Zestril] 20 mg PO BID 12/19/17 [History] Omeprazole [PriLOSEC] 20 mg PO DAILY 12/19/17 [History] Nicotine Patch [Nicoderm] 14 mg TD DAILY #28 patch.td24 12/23/17 [Rx] [place]-3/Dha/Epa/Fish Oil [Fish Oil [place]-3 EC 1,200 mg] 1 each PO DAILY #30 capsule. 12/23/17 [Rx] hydroCHLOROthiazide [Hydrochlorothiazide] 12.5 mg PO DAILY #30 tablet 12/23/17 [ Rx] 3 Allergy/AdvReac Type Severity Reaction Status Date / Time Amoxicillin Allergy Rash Verified 09/20/15 16:38 - Meds/Allergy Pre-op Review Medications Reviewed: Yes Allergies Reviewed: Yes Beta Blockers on Current Med List: No Anesthesia Results - Labs 12/21/17 04:03 12/21/17 04:03 - Imaging EKG: report reviewed (12/19/2017 SINUS TACHYCARDIA) Additional studies: 12/21/2017 Stress Impression: Average quality 2-day study. Low level exercise/ pharmacologic stress ECG is negative for ischemia at level of heart rate achieved. Chest discomfort (1/10) prior to, during, and after the study. Gated EF = 65%. Small sized, mild intensity, reversible basal to mid inferolateral defect suggestive of ischemia. Ordering physician notified via [employer]. 12/20/2017 Echo Impressions: LVEF 60-65%. Normal LV chamber size and function. Mild concentric left ventricular hypertrophy. Mild left ventricular diastolic dysfunction. Right ventricular size was not well visualized. Function appears normal. Unable to estimate RVSP due to lack of TR jet. No significant valvular dysfunction. Anesthesia Exam Vital Signs/O2 Sat, Most Current Temp Pulse Resp BP Pulse Ox 98.1 F 89 17 137/99 96 12/24/17 12:07 12/24/17 12:07 12/24/17 12:07 12/24/17 12:07 12/24/17 12:07 Height: 6'2''/1.88 m Weight: 305 lbs/138 .4 kg NPO (# of Hours): 8 Pain Scale: 0 Pain Scale Used: Numeric (1 - 10) - HEENT Pupil (Motor): EOMI Mallampati: III Teeth: Normal Oral Opening: Greater than 3 - OLIVE K[employer]OCKER LOC: Oriented OLIVE K[employer]OCKER Motor: Normal RUE, Normal LUE, Normal RLE, Normal LLE, Normal Face [employer]IVE K[employer]OCKER Sensory: Normal: RUE, LUE, RLE, LLE, Face - Cardiac Rhythm: Regular Murmur: None - Pulmonary Breath Sounds: bilateral Clear Respiratory Effort: Symmetrical Anesthesia Assess/Plan ASA Score: 3 Modified Nathalia Scale for Level of Consciousness: Cooperative, oriented, and tranquil Anesthetic Plan: MAC Monitoring Plan: Standard Monitors
[2017-12-24] MEDS: 0.9 % Sodium Chloride 500 ML IVC SCH (13:50)
[2017-12-24] MEDS ORDERED: *HR* Propofol 200 MG/20 ML VIAL IVP ONE ×2 (14:00→14:07)
[2017-12-24] MEDS ORDERED: Lidocaine -MPF 2% 2 ML VIAL ONE ×2 (14:01→14:28)
[2017-12-24] MEDS: Aspirin Enteric Coated 81 MG Tablet PO SCH (14:36)
--- NOTE | 2017-12-24 15:32 | Gastroenterology Consult Note ---
<Tommie Bullard - Last Filed: 12/24/17 15:30> Date of Encounter: 12/24/17 Time of Encounter: 12:20 - Assessment and plan (1) NSAID long-term use Status: Acute Assessment and plan: Decrease NSAID usage. Plan for EGD today. (2) Abnormal stress test Status: Acute Assessment and plan: Plan for EGD today to r/o esophagitis, gastritis, duodenitis, PUD, MW tear, or AVM prior to [facility]. - Time Spent With Patient Total time spent is greater than 50% in coordination of care (as documented) at patient's floor/unit and/or counseling patient: GI History of Present Illness - Data of Consult Patient: new to practice Consult date: 12/24/17 Requesting Physician: Raymundo Sneed MD - Consult Narrative Reason for consult: GI evaluation prior to [facility] History of present illness: Mr. Sanderson is a 32 year old male with PMHx of HTN who presented to the ED with c/o substernal chest pain x1 week which is worsened with activity and relieved by rest. Chest x-ray was negative for any acute process. Upon presentation, troponins negative. ECG without ischemic findings. Echo with normal LVEF and RV function. Patient underwent stress testing that suggested ischemia and Cardiology was consulted. He reports an episode of hematemesis about one week ago, and states a "scope" was set up as outpatient. Cardiology recommends GI evaluation prior to [facility]. Procedures: None NSAIDs: Ibuprofen Anticoagulation: None Past Med Surg Social Fam HX - Past Medical History Medical history: hypertension Psychiatric history: no psych history - Past Surgical History Surgical History: no surgical history - Social History Smoking Status: Current every day smoker Smokeless Tobacco Status: No Alcohol use: occasionally Drug use: none - Family History Mother Hx Family Cardiac Disorders: Yes (HTN) Hx Family Neurologic Disorders: Yes (vertigo) Father Hx Family Genitourinary Disorders: Yes (kidney disease) - Gastrointestinal Gastrointestinal: Present: as per HPI - Constitutional Constitutional: as per HPI - EENT Eyes: as per HPI Ears: Present: as per HPI Nose, mouth and throat: Present: as per HPI - Cardiovascular Cardiovascular ROS: Present: as per HPI - Respiratory Respiratory IM: Present: as per HPI - Genitourinary Genitourinary: Absent: change in color, Urinary frequency - Neurological ROS Neurological GI: Present: as per HPI - Hematologic/Lymphatic Hematologic/Lymphatic pediatric: Present: as per HPI - Musculoskeletal Musculoskeletal ROS GI: Present: as per HPI - Integumentary Integumentary GI: Present: as per HPI - Psychiatric ROS Psychiatric GI: Present: as per HPI - Endocrine Endocrine IM: Present: as per HPI - Constitutional Vitals: Temp Pulse Resp BP Pulse Ox 98.2 F 110 16 123/80 96 12/24/17 14:56 12/24/17 14:56 12/24/17 14:56 12/24/17 14:56 12/24/17 13:48 General appearance: Present: cooperative, A&O X 3, no acute distress, answers questions appropriately - Head Head exam: Present: atraumatic, normocephalic - Eye Eye exam: Present: normal appearance, sclera anicteric - ENT ENT exam: Present: mucous membranes dry - Neck Neck exam general surgery: Present: normal inspection, trachea midline - Respiratory Respiratory exam: Present: CTAB. Absent: rales, rhonchi - Cardiovascular Cardiovascular exam: Present: RRR, +S1, +S2 - GI/Abdominal GI/Abdominal exam: Present: soft, no peritoneal signs. Absent: distended, firm , guarding, tenderness - Rectal Rectal exam: Present: deferred - Extremities Exam Extremities exam: Present: warm - Neurological Exam Neurological exam: Present: no focal deficits - Psychiatric Psychiatric exam: Present: normal affect, normal mood - Skin Skin exam: Present: dry, intact, normal color, warm Results - Labs CBC & Chem 7: 12/21/17 04:03 12/21/17 04:03 Labs: Last Result Calcium 8.6 mg/dL (8.6-10.3) 12/21/17 04:03 Troponin I < 0.03 ng/mL (< 0.04) 12/20/17 17:25 C-Reactive Protein < 5 mg/L (Less than 10) 12/19/17 16:02 Triglycerides 177 mg/dL (< 150) H 12/20/17 05:28 Entire Visit Hgb 15.7 g/dL (12.9-16.9) 12/21/17 04:03 Hct 46.3 % (37.5-50.1) 12/21/17 04:03 PT 11.3 Seconds (9.4-12.1) 12/20/17 05:28 Total Bilirubin 0.7 mg/dL (0.3-1.0) 12/20/17 05:28 AST 18 Units/L (13-39) 12/20/17 05:28 ALT 22 Units/L (7-52) 12/20/17 05:28 Lipase 22 Units/L (11-82) 12/19/17 16:02 - ABG ABG results: PT/INR, D-dimer PT 11.3 Seconds (9.4-12.1) 12/20/17 05:28 Consult Discharge Plan - Plan Instructions: Chest Pain (DC) Additional Instructions: These follow up with your primary care provider in the next 7-10 days for recheck. Please take your medications as directed. Please have your prescriptions filled in the next few days. Please stop smoking and weight or nicotine patches. Please increase your exercise, water, and follow a reduced calorie diet. Return to the emergency department as needed for any other problems or concerns , or if your symptoms return or worsen. Referrals: Agustina Lara DO [Primary Care Provider] - Prescriptions: hydroCHLOROthiazide [Hydrochlorothiazide] 12.5 mg PO DAILY #30 tablet Nicotine Patch [Nicoderm] 14 mg TD DAILY #28 patch.td24 [place]-3/Dha/Epa/Fish Oil [Fish Oil [place]-3 EC 1,200 mg] 1 each PO DAILY #30 capsule. <Tung Luevano - Last Filed: 12/29/17 15:11> Date of Encounter: 12/24/17 - Time Spent With Patient Total time spent is greater than 50% in coordination of care (as documented) at patient's floor/unit and/or counseling patient: GI History of Present Illness - Data of Consult Requesting Physician: Raymundo Sneed MD - Consult Narrative History of present illness: Mr. Sanderson is a 32 year old male - Constitutional Vitals: Temp Pulse Resp BP Pulse Ox 98.0 F 92 16 116/81 93 12/25/17 16:30 12/25/17 17:30 12/25/17 17:30 12/25/17 17:30 12/25/17 17:30 Results - Labs CBC & Chem 7: 12/25/17 05:01 12/25/17 05:01 Labs: Last Result Calcium 9.4 mg/dL (8.6-10.3) 12/25/17 05:01 Troponin I < 0.03 ng/mL (< 0.04) 12/20/17 17:25 C-Reactive Protein < 5 mg/L (Less than 10) 12/19/17 16:02 Triglycerides 177 mg/dL (< 150) H 12/20/17 05:28 Entire Visit Hgb 16.7 g/dL (12.9-16.9) 12/25/17 05:01 Hct 49.0 % (37.5-50.1) 12/25/17 05:01 PT 11.8 Seconds (9.4-12.1) 12/25/17 05:01 Total Bilirubin 0.7 mg/dL (0.3-1.0) 12/20/17 05:28 AST 18 Units/L (13-39) 12/20/17 05:28 ALT 22 Units/L (7-52) 12/20/17 05:28 Lipase 22 Units/L (11-82) 12/19/17 16:02 - ABG ABG results: PT/INR, D-dimer PT 11.8 Seconds (9.4-12.1) 12/25/17 05:01 - Attending Attestation This is a pleasant 32-year-old white male who comes in now because of substernal chest pain and an episode of hematemesis about a week ago this is a difficult one to evaluate because it is a week ago and if it is a moderate Carmen-De Guzman tear would probably be be completely healed at this time unless cardiology is planning a left heart catheterization so in order so we have to exclude any possible contraindication to anticoagulation and so we will plan to repeat upper endoscopy today the patient understands that he might not find anything since it has been a week ago thank you very much this consultation we will make further recommendations after endoscopy today I have personally performed a face to face evaluation on this patient. I have reviewed and agree with the care plan. History and Exam by me shows:
--- NOTE | 2017-12-24 16:49 | Internal Med Progress Note ---
Date of Encounter: 12/24/17 Time of Encounter: 16:47 - Assessment and plan (1) Chest pain Current Visit: Yes Status: Acute Assessment and plan: with intermittent left chest pain and rated. Stress test showed small size, mild intensity re defect suggestive of ischemia. Evaluated by cardiology he was concern for possible GI etiology requested GI evaluation. Underwent EGD on 12/24/17 that showed esophagitis and gastritis (plan as noted below). Cardiology planning [facility] 12/25/17. NPO at midnight. Continue ASA. Qualifiers: Chest pain type: unspecified Qualified Code(s): R07.9 - Chest pain, unspecified (2) History of hypertension Current Visit: Yes Status: Chronic Assessment and plan: per hx. BP elevated while inpatient. Continue home ACEs, added HCTZ with improvement and BP (3) Obesity Current Visit: Yes Status: Chronic Assessment and plan: BMI 39. Encourage lifestyle and dietary modifications encouraged Qualifiers: Obesity type: unspecified obesity type Obesity classification: adult class 2 (BMI 35 - 39.9) Serious obesity comorbidity presence: unspecified whether serious comorbidity present Body mass index: BMI 39.0-39.9 Qualified Code(s) : E66.9 - Obesity, unspecified; Z68.39 - Body mass index (BMI) 39.0-39.9, adult ; Z68.39 - Body mass index (BMI) 39.0-39.9, adult (4) DVT prophylaxis Current Visit: Yes Status: Acute Assessment and plan: ambulation - Subjective Interval history: Seen and examined at bedside. Patients well and is back to baseline. Denies chest pain on my exam. Says chest pain continues to come and go. Starts on the left side and radiates towards the right shoulder. Described as sharp. Nothing makes better or worse. He is aware for left heart catheterization tomorrow. - Constitutional Vitals: Temp Pulse Resp BP Pulse Ox 98.6 F 105 18 107/72 106 12/24/17 16:14 12/24/17 16:14 12/24/17 16:14 12/24/17 16:14 12/24/17 16:14 General appearance: Present: cooperative, A&O X 3, pleasant, no acute distress, obese, answers questions appropriately - Head Head exam: Present: atraumatic, normocephalic - Eye Eye exam: Present: PERRL, conjuntiva pink, sclera anicteric Pupils: Present: PERRL - Neck Neck exam general surgery: Present: supple, trachea midline. Absent: lymphadenopathy - Respiratory Respiratory exam: Present: CTAB. Absent: accessory muscle use, rales, rhonchi, wheezes - Cardiovascular Cardiovascular exam: Present: RRR, +S1, +S2. Absent: diastolic murmur, gallop, rubs, systolic murmur - GI/Abdominal GI/Abdominal exam: Present: normal bowel sounds, soft, no peritoneal signs. Absent: distended, tenderness - Extremities Exam Extremities exam: Present: warm, radial pulses palpable and symmetrical. Absent : calf tenderness, cyanotic, pedal edema - Neurological Exam Neurological exam: Present: CN II-XII intact, oriented X3, no focal deficits. Absent: pronater drift, facial droop, speech deficit - Skin Skin exam: Present: dry, intact Internal Medicine: Result - Labs CBC & Chem 7: 12/21/17 04:03 12/21/17 04:03 - ABG Interpretation ABG results: PT/INR, D-dimer PT 11.3 Seconds (9.4-12.1) 12/20/17 05:28 Consult Discharge Plan - Plan Additional Instructions: These follow up with your primary care provider in the next 7-10 days for recheck. Please take your medications as directed. Please have your prescriptions filled in the next few days. Please stop smoking and weight or nicotine patches. Please increase your exercise, water, and follow a reduced calorie diet. Return to the emergency department as needed for any other problems or concerns , or if your symptoms return or worsen. Referrals: Agustina Lara DO [Primary Care Provider] - Prescriptions: hydroCHLOROthiazide [Hydrochlorothiazide] 12.5 mg PO DAILY #30 tablet Nicotine Patch [Nicoderm] 14 mg TD DAILY #28 patch.td24 [place]-3/Dha/Epa/Fish Oil [Fish Oil [place]-3 EC 1,200 mg] 1 each PO DAILY #30 capsule.
[2017-12-25 06:42] LABS: Hemoglobin 16.7 g/dL (12.9-16.9); INR 1.1; Mean Corpuscular HGB Conc 34.1 g/dL (31.6-35.5); Mean Corpuscular Hemoglobin 32.9 pg (28.0-33.3); Mean Corpuscular Volume 96.6 fL (83.0-100.0); Mean Platelet Volume 8.9 fL (9.4-12.4); Platelet Count 162 K/mcL (140-400); Prothrombin Time 11.8 Seconds (9.4-12.1); Red Blood Count 5.07 M/mcL (4.19-5.50)
[2017-12-25 06:57] LABS: BUN/Creatinine Ratio 21 (6-26); Blood Urea Nitrogen 17 mg/dL (6-20); Calcium 9.4 mg/dL (8.6-10.3); Carbon Dioxide 24 mEq/L (23-29); Chloride 104 mEq/L (98-107); Glucose 95 mg/dL (70-105); Osmolality,Calculated 283 (280-300); Potassium 4.2 mEq/L (3.5-5.1); Sodium 136 mEq/L (136-145); eGFR For African Americans > 60 (> 60); eGFR For Non-African Americans > 60 (> 60)
[2017-12-25] MEDS: Nicotine 14 MG PATCH.TD24 TD SCH (08:03)
[2017-12-25] MEDS: Aspirin Enteric Coated 81 MG Tablet PO SCH (08:03)
[2017-12-25] MEDS: hydroCHLOROthiazide 25 MG TABLET PO SCH (08:03)
[2017-12-25] MEDS: Lisinopril 20 MG TABLET PO SCH (08:04)
--- NOTE | 2017-12-25 09:32 | Cardiology Progress Note ---
Date of Encounter: 12/25/17 Time of Encounter: 09:00 Assessment and Plan (1) Abnormal stress test Current Visit: Yes Status: Acute Patient underwent stress testing which was an average quality study done as a 2- day due to body habitus. This demonstrated a small sized, mild intensity basal- mid inferolateral wall defect suggestive of ischemia. Patient's risk factors include hypertension and smoking. We discussed the results of the stress test and his risk factors for CAD. Given his age I suspect findings may represent a false positive test result. Symptoms possibly in part explainable by abnormal endoscopy results. However, the patient has ongoing chest discomfort despite starting PPI and risk factors for CAD and therefore I have offered the consideration for proceeding with LHC. The R/B/A of the procedure were discussed with the patient. Major risks described include but are not limited to CO, , stroke, bleeding, CANDELARIA, risk with anesthesia, need for emergent surgery. Patient expressed understanding of the risks involved. He would like to proceed with LHC. Discussion w patient/family: The assessment and plan as outlined above was discussed with the patient and/or family members who expressed understanding and agreement. All questions were answered. Thank you for involving us in the care of your patient. Please call with any questions. Subjective Principal diagnosis: chest pain Interval history: Patient seen at the bedside. Continues to complain of "intermittent" chest pain. Endoscopy report reviewed - demonstrated gastritis and esophagitis. Patient started on prilosec. Objective Vital Signs, Last 4 Hours Temp Pulse Resp BP Pulse Ox 12/25/17 06:51 97.9 F 91 20 111/74 96 General: Conversant, No Apparent Distress HEENT: Mucus Membranes Moist Neck: No JVD Cardiac: Reg Rate and Rhythm, Normal S1 and S2, No Murmur Lungs: Normal Breath Sounds, No Wheeze, Rales, Rhonchi Neuro: Alert and responsive, No focal deficits noted Abdomen: Soft, Non-Tender, Other (bowel sounds normal) Extremities: No Edema, Normal Pulses Results 12/25/17 05:01 12/25/17 05:01 Lab Results 12/25/17 12/25/17 12/25/17 05:01 05:01 05:01 WBC 7.0 Hgb 16.7 Hct 49.0 Plt Count 162 INR 1.1 Sodium 136 Potassium 4.2 Chloride 104 Carbon Dioxide 24 BUN 17 Creatinine 0.81 Glucose 95 Calcium 9.4 - EKG Interpretation EKG results cardiology: other (telemetry reviewed - no concerning dysrhythmia or pauses) Consult Discharge Plan - Plan Additional Instructions: These follow up with your primary care provider in the next 7-10 days for recheck. Please take your medications as directed. Please have your prescriptions filled in the next few days. Please stop smoking and weight or nicotine patches. Please increase your exercise, water, and follow a reduced calorie diet. Return to the emergency department as needed for any other problems or concerns , or if your symptoms return or worsen. Referrals: Agustina Lara DO [Primary Care Provider] - Prescriptions: hydroCHLOROthiazide [Hydrochlorothiazide] 12.5 mg PO DAILY #30 tablet Nicotine Patch [Nicoderm] 14 mg TD DAILY #28 patch.td24 [place]-3/Dha/Epa/Fish Oil [Fish Oil [place]-3 EC 1,200 mg] 1 each PO DAILY #30 capsule.
[2017-12-25] MEDS: 0.9 % Sodium Chloride 500 ML IVC SCH ×2 (12:00→12:01)
[2017-12-25] MEDS ORDERED: Heparin 1,000 UNITS/500 mL 500 ML ONE (14:32)
[2017-12-25] MEDS ORDERED: 0.9 % Sodium Chloride 1,000 ML ONE ×2 (14:32→15:29)
[2017-12-25] MEDS ORDERED: *HR* Heparin 10,000 UNIT/10 ML VIAL ONE (14:32)
[2017-12-25] MEDS ORDERED: Verapamil 5 MG/2 ML VIAL ONE (14:33)
[2017-12-25] MEDS ORDERED: Nitroglycerin 1,000 MCG/10 ML VIAL IV ONE (14:33)
[2017-12-25] MEDS ORDERED: ISOVUE-370 200 ML INFUS..BTL IV ONE (14:33)
[2017-12-25] MEDS ORDERED: *HR* FentaNYL (PF) 100 MCG/2 ML VIAL ONE (15:29)
[2017-12-25] MEDS ORDERED: *HR* Midazolam HCl 2 MG/2 ML VIAL ONE ×2 (15:29→15:52)
--- NOTE | 2017-12-25 15:42 | Pre-Sedation Evaluation ---
Pre-sedation evaluation - Pre-sedation checklist Date of procedure: 12/25/17 Procedure: [facility] Recent Vitals: Last Vital Signs Temp 98.2 F 12/25/17 10:56 Pulse 95 12/25/17 10:56 Resp 20 12/25/17 10:56 BP 137/93 12/25/17 10:56 Pulse Ox 97 12/25/17 10:56 H&P (including ROS) documented in medical record: Yes Previous reaction to sedatives/anesthetics: No Dietary Status: NPO after Midnight Dentition: No loose teeth or bridges ASA Classification *see protocol: CLASS II-Mild systemic disease Plan of Care: Pt appropriate candidate for procedure/moderate/conscious sedation , Risks/benefits of procedure/sedation discussed w/ patient/family
--- NOTE | 2017-12-25 15:43 | History & Physical Report ---
Date of Encounter: 12/25/17 Time of Encounter: 15:45 24 Hour HP Update - Instructions Instructions: If the History and Physical is less than 30 days old and was completed prior to A.M. admission and or procedure and has NOT been updated on calendar day of procedure please complete this update prior to performing procedure. - Update Patient reports changes in Medical Condition: No Changes in examination, assessment, or condition: No Changes in Medication: No Preop tests/diagnostics Reviewed: Yes Surgery Remains Indicated: Yes Consent for Planned Operative Procedure(s) Verified: Yes
[2017-12-25] MEDS ORDERED: Ondansetron 4 MG/2 ML VIAL ONE (15:54)
--- NOTE | 2017-12-25 16:17 | Event Note ---
Date of Encounter: 12/25/17 Time of Encounter: 16:16 - Cardiology Event Note Per discussion with , [facility] with normal coronary angiogram. Cardiology will sign off.
--- NOTE | 2017-12-25 16:59 | Discharge Summary ---
Orders not resulted at time of discharge: Pending orders 12/20/17 19:25 NM nikiat perf SPECT multi [NM] Routine 12/25/17 16:23 CL Cardiac Catheterization [CL] Routine Date of Encounter: 12/26/17 Time of Encounter: 10:30 - Discharge Diagnosis (1) Chest pain Priority: Primary Status: Acute Qualifiers: Chest pain type: unspecified Qualified Code(s): R07.9 - Chest pain, unspecified (2) History of hypertension Priority: Primary Status: Chronic (3) Obesity Priority: Primary Status: Chronic Qualifiers: Obesity type: unspecified obesity type Obesity classification: adult class 2 (BMI 35 - 39.9) Serious obesity comorbidity presence: unspecified whether serious comorbidity present Body mass index: BMI 39.0-39.9 Qualified Code(s) : E66.9 - Obesity, unspecified; Z68.39 - Body mass index (BMI) 39.0-39.9, adult ; Z68.39 - Body mass index (BMI) 39.0-39.9, adult Hospital course: Mr. Sanderson is a 32 year old male with past medical history hypertension and tobacco use who presented to [facility] on 12/20/2017 with complaints of chest pain. Serial troponins negative. EKG without acute ST changes. TTE with preserved EF, no valvular abnormalities, no wall motion abnormalities. He underwent an nuclear stress test which was abnormal. Therefore he subsequently underwent a left heart catheterization which showed normal coronary arteries. His pain possibly secondary to uncontrolled blood pressure as BP uncontrolled on arrival. Patient declined to stay inpatient for further workup and treatment (specifically wanted to check CTA to rule out pulmonary embolism however patient declined stated he would leave AGAINST MEDICAL ADVICE if he was not discharged). Home PEDRO was continued and HCTZ was added with improved BP control. He was discharged home in stable condition with outpatient follow-up. Advised to return to ER if chest pain/shortness of breath recurs. Smoking cessation was advised Discharge discussed with: patient - Time Spent with Patient Total time spent providing and/or coordinating discharge services: - Discharge Medications Prescriptions: hydroCHLOROthiazide [Hydrochlorothiazide] 12.5 mg PO DAILY #30 tablet Nicotine Patch [Nicoderm] 14 mg TD DAILY #28 patch.td24 [place]-3/Dha/Epa/Fish Oil [Fish Oil [place]-3 EC 1,200 mg] 1 each PO DAILY #30 capsule.dr Home Medications: Lisinopril [Zestril] 20 mg PO BID 12/19/17 [History] Omeprazole [PriLOSEC] 20 mg PO DAILY 12/19/17 [History] Nicotine Patch [Nicoderm] 14 mg TD DAILY #28 patch.td24 12/23/17 [Rx] [place]-3/Dha/Epa/Fish Oil [Fish Oil [place]-3 EC 1,200 mg] 1 each PO DAILY #30 capsule. 12/23/17 [Rx] hydroCHLOROthiazide [Hydrochlorothiazide] 12.5 mg PO DAILY #30 tablet 12/23/17 [ Rx] Allergies/Adverse Reactions: 3 Allergy/AdvReac Type Severity Reaction Status Date / Time Amoxicillin Allergy Rash Verified 09/20/15 16:38 Date of admission: 12/19/17 22:37 Primary care physician: Agustina Lara DO Consults: 12/23/17 13:13 Consult to Cardiology [CONS] Routine Comment: Consulting Provider: Cardiology Georgina Reason for Consult: + stress test Time Notified: 13:13 Call Completed: Yes 12/24/17 08:04 Consult to Gastroenterology [CONS] Routine Consulting Provider: Gastroenterology [place] Reason for Consult: Abnormal stress test. Cards concerned for GI etiology. Was suppose to have EGD outpatient. Cardiology requesting GI evaluation/work-up before proceeding with heart cath Call Completed: Yes Discharging clinician: Vicky Otero Anticipated date of discharge: 12/25/17 - Constitutional Vitals: Temp Pulse Resp BP Pulse Ox 98.2 F 95 20 137/93 97 12/25/17 10:56 12/25/17 10:56 12/25/17 10:56 12/25/17 10:56 12/25/17 10:56 General appearance: Present: cooperative, A&O X 3, pleasant, no acute distress, obese, answers questions appropriately - Head Head exam: Present: atraumatic, normocephalic - Eye Eye exam: Present: PERRL, conjuntiva pink, sclera anicteric Pupils: Present: PERRL - Neck Neck exam general surgery: Present: supple, trachea midline. Absent: lymphadenopathy - Respiratory Respiratory exam: Present: CTAB. Absent: accessory muscle use, rales, rhonchi, wheezes - Cardiovascular Cardiovascular exam: Present: RRR, +S1, +S2. Absent: diastolic murmur, gallop, rubs, systolic murmur - GI/Abdominal GI/Abdominal exam: Present: normal bowel sounds, soft, no peritoneal signs. Absent: distended, tenderness - Extremities Exam Extremities exam: Present: warm, radial pulses palpable and symmetrical. Absent : calf tenderness, cyanotic, pedal edema - Neurological Exam Neurological exam: Present: CN II-XII intact, oriented X3, no focal deficits. Absent: pronater drift, facial droop, speech deficit - Skin Skin exam: Present: dry, intact - Patient Status Disposition: Home, Self-Care Condition: Good Functional capacity at discharge: independent ambulation Overall status at discharge: patient is back to baseline - Discharge Instructions Instructions: Chest Pain (DC) Follow Up With: Agustina Lraa DO [Primary Care Provider] - Additional Instructions: These follow up with your primary care provider in the next 7-10 days for recheck. Please take your medications as directed. Please have your prescriptions filled in the next few days. Please stop smoking and weight or nicotine patches. Please increase your exercise, water, and follow a reduced calorie diet. Return to the emergency department as needed for any other problems or concerns , or if your symptoms return or worsen. - Diet and Activity Activity: increase activity as tolerated Diet: advance to your usual diet
[2017-12-25 17:37] VITALS: BP 116/81
--- NOTE | 2018-01-21 11:59 | Invasive Diagnostic Lab Proc ---
Name: Everardo Sanderson Date of Study: 12/24/2017 Date: 1985 Ht: 74.0in Medical Record#: [id number] Age: 32 Wt: 302.03lb Gender: Male BSA: 2.59 Order #: [id number] BMI: 38.76 Physicians Procedure Physician: Jose G Mckenzie MD, FACC Referring MD: Referring MD: Staff Name Position Time In Karishma Felipe RN Monitor 03:18 PM Pawan Parisi RN Basting Puller 03:18 PM Ariadna English RT Scrub 03:18 PM Indications Indication Abnormal Test - Stress Procedures Performed Procedure L HRT ARTERY/VENTRICLE ANGIO Pre-Procedure Checklist Informed consent is complete signed and on chart. H&P is on chart. ID band is on and ID verified with patient. Patient NPO for procedure The procedure was described for the patient and questions were answered. ECG is on chart. Plan of Care Patient will tolerate the procedure without complications. Adequate level of comfort will be maintained. Hemodynamics will remain stable Patient will recover from procedure without complications. Respiratory function will be maintained. Cardiac rhythm will remain stable. Patient temperature will be maintained. Patient and/or family have verbalized understanding of the procedure. Patient Education Chief Complaint/Reason for Test: Cardiac Cath Developmental Category: Adult (18-64 years) Developmentally Appropriate for Age: Yes Learning Barriers: None Education Needs: Procedure Education Method: Verbal Information Taught: Cardiac Cath Educational Evaluation: Able to repeat information Intravenous Access Time IV Size Location DC'd Fluid/Drip Rate Units RN 22g 1" Patent On Arrival Rt Hand 0.9NaCl ml/hr 20g 1 1/4" Patent On Arrival Rt Antecubital Allergies NO KNOWN ALLERGIES Amoxicillin Vital Signs Time BP (mmHg) HR (bpm) O2 Sat. RR (bpm) LOC 03:33 PM / % 4 = Oriented but drowsy 03:33 PM / % 4 = Oriented but drowsy 03:48 PM / % 4 = Oriented but drowsy Procedural Medications Time Medication Dose Units Method Given By 03:33 PM Oxygen 2 L/min nasal cannula Pawan Parisi RN 03:33 PM Versed 2 mg Intravenous Pawan Parisi RN 03:33 PM Fentanyl 50 mcg Intravenous Pawan Parisi RN 03:48 PM Lidocaine 2% 0.5 ml Subcutaneous Jose G Mckenzie MD, FACC 03:50 PM Heparin 4000 units Nitroglycerin 200 mcg Verapamil 2.5 mg Intraarterial Jose G Mckenzie MD, FACC 03:54 PM Versed 1 mg Intravenous Pawan Parisi RN 03:54 PM Fentanyl 25 mcg Intravenous Pawan Parisi RN 03:54 PM Zofran 8 mg Intravenous Pawan Parisi RN ASA Classification: CLASS II- Mild systemic disease (i.e. well-controlled diabetes, hypertension, asthma, cigarette smoking) Ramírez Score Preprocedure Postprocedure Activity 2- Moves 4 extremities sustained head lift Activity 2- Moves 4 extremities sustained head lift Circulation 2- SBP +/= 20 points of pre-anesthetic level Circulation 2- SBP +/= 20 points of pre-anesthetic level Consciousness 2- Awake and alert oriented x 3 Consciousness 2- Awake and alert oriented x 3 O2 Saturation 2- Able to maintain O2 satruation of 92% on room air O2 Saturation 2- Able to maintain O2 satruation of 92% on room air Respiratory 2- Able to deep breathe and cough well Respiratory 2- Able to deep breathe and cough well Total Score 10 Total Score 10 Contrast Agent: Isovue Diagnostic Contrast: 55 ml Total Contrast: 55 ml Fluoro Dose: 318 mGy Procedure Log Time Note Enter By 03:18 PM [facility] [employer] processing laborer [facility] Felipe Schwarz RN Position: [facility]: [facility] Pawan Parisi RN Position: Basting Puller [facility]: [facility] Ariadna English RT Position: Scrub Time [facility]: 15:18 [facility] 03[facility] PM Patient charges- Angio tray pack, Navilyst 3mm J, Pulse Oximetry and ACIST tubing and transducer [facility] 03:19 PM Cor[facility] paged/called 15:19. [facility] PM Corby responded and notified patient is [facility] 15:[facility] PM [facility] PM ASA Class CLASS II- Mild systemic disease (i.e. well-controlled diabetes, hypertension, asthma, cigarette smoking) [facility] PM Meet and greet completed [facility] 03:32 PM Sign in performed according to hospital policy. [email or web address] 03:32 PM Procedure start 15:32 [email or web address] 03:33 PM Time: 15:33 Patient comfortable and pain free: Yes [email or web address] 03:33 PM Time: 15:33LOC: 4 = Oriented but drowsy [email or web address] 03:33 PM Time: 15:33 Oxygen on at 2 L/min per nasal cannula by Pawan Parisi RN 03:33 PM Time: 15:33 Versed 2 mg Intravenous Given by Pawan Parisi RN 03:33 PM Time: 15:33 Fentanyl 50 mcg Intravenous Given by Pawan Parisi RN [email or web address] 03:34 PM Hair removed from procedure site in holding area using clippers. Right wrist prepped with Chloraprep by Felipe Schwarz RN, then patient was draped. Skin intact. [email or web address] 03:34 PM Hair removed from procedure site in holding area using clippers. Right groin prepped with Chloraprep by Felipe Schwarz RN, then patient was draped. Skin intact. [email or web address] 03:48 PM Time: 15:33 Patient comfortable and pain free: Yes [email or web address] 03:48 PM Time: 15:33LOC: 4 = Oriented but drowsy jcallihan 03:48 PM Time out performed according to hospital policy [email or web address] 03:48 PM Time: 15:48 0.5 ml Lidocaine 2% to right radial Subcutaneous Given by Jose G Mckenzie MD, FACC [email or web address] 03:49 PM Access obtained by percutaneous puncture. 6Fr 10cm Terumo Glidesheath sheath placed in right Radial artery. [id number] [email or web address] 03:50 PM Time: 15:50 Patient given 4,000 units Heparin, 200 mcg Nitroglycerin, and 2.5 mg Verapamil Intraarterial by Jose G Mckenzie MD, FACC. This is given to reduce risk of vessel spasm and thrombosis. [email or web address] 03:50 PM 0.035 260cm Navilyst 3mmJ wire [id number] jcallihan 03:50 PM 5Fr TIG catheter inserted over the wire C jcallihan 03:51 PM Catheter removed [email or web address] 03:51 PM 0.035 145cm VSI Cirilo-Torque wire [id number] jcallihan 03:52 PM Wire removed [email or web address] 03:53 PM RCA angiography performed in multiple views. [email or web address] 03:54 PM Time: 15:54 Versed 1 mg Intravenous Given by Pawan Parisi RN [email or web address] 03:54 PM Time: 15:54 Fentanyl 25 mcg Intravenous Given by Pawan Parisi RN 03:54 PM Time: 15:54 Zofran 8 mg Intravenous Given by Pawan Parisi RN 03:55 PM LCA angiography performed in multiple views. [email or web address] 03:56 PM RCA angiography performed in multiple views. [email or web address] 03:56 PM Coronary Dominance: right [email or web address] 03:57 PM Catheter removed [email or web address] 03:57 PM 5Fr Pigtail catheter inserted over the wire [facility] jcallihan 03:58 PM Catheter selectively placed in left ventricle jcallihan 03:58 PM Bolus angiogram of left Ventricle complete: 10 ml/sec for a total of 30 mls [email or web address] 04:01 PM Procedure completed at 16:01 [email or web address] 04:01 PM Did you address [place] flow and Dominance? Yes [email or web address] 04:02 PM Sign out completed: Radiation Dose 317.88 mGy Fluoro Time: 2.5 Isovue 370 - 200ml contrast 55 ml given by Jose G Mckenzie MD, [facility]. Complications: NoneCardiac Rehab Consult needed: NoConfirmed administered medications: Yes [email or web address] 04:02 PM Isovue 370 - 200ml,1 Bottle(s) used. [email or web address] 04:02 PM Arterial sheath pulled, Vasc Band closure device used and was Successful S/N. jcallihan 04:02 PM 9 ml air in Vasc Band. [email or web address] 04:02 PM Estimated Blood Loss: minimal [email or web address] 04:02 PM Post ECG NSR [email or web address] 04:02 PM Post Blood Pressure 113/53 jcallihan 04:02 PM Information taught Cardiac Cath and Vasc Band [email or web address] 04:02 PM Education needs Procedure, Plan of Care, and Disease Process [email or web address] 04:02 PM Learning barriers :None [email or web address] 04:02 PM Education Methods Verbal [email or web address] 04:02 PM Education evaluation Able to repeat information [email or web address] 04:03 PM Time: 15:48 Patient comfortable and pain free: Yes [email or web address] 04:03 PM Time: 15:48LOC: 4 = Oriented but drowsy [email or web address] 04:03 PM Site status No bleeding/hematoma - Rt Wrist as reported by Ariadna English RT at 16:03 karma 04:03 PM Delay to floor No [email or web address] 04:03 PM Family placed in not available. [email or web address] 04:03 PM Complications: None [email or web address] 04:06 PM Report given to Raghavendra JONES Pt taken to Room #39. 16:06 karma 04:06 PM Patient out of room: 16:06 karma Complications Complication None None Post Procedure Information Blood Pressure: 113/53 mmHg Rhythm: NSR Post procedural instructions were not given Closure Device Time Device Success/Fail 12/25/2017 4:00:00 PM Manual Compression Successful Site Checks Time Location Status Staff Sheath In? Note 04:03 PM Rt Wrist No bleeding/hematoma Ariadna English RT Pulses Time Site Pre-Procedure Post-Procedure Note Bilateral DP & PT 2+ 2+ Bilateral radial 2+ 2+ Updated by Felipe Schwarz RN on 12/25/2017 4:13:18 PM electronically signed on 01/21/2018 11:54:19 AM with status of Final
== END 2017-12-25 19:45 | disposition home or self-care (01) ==
LOC: 3BNU 15:55 → EMEROO 15:55 → 3BNU 22:55
PROVIDERS: ADMIT Internal Medicine; ATTEND Internal Medicine